=== PATIENT | female | born 1950 ===

== ENCOUNTER 2021-02-24 07:43 | Day surgery (SDC) | payer OTHER ==
[~2021-02-24 07:43] MED LIST: CLONAZEPAM2 M1 PO; PROTONIX40 MG PO; SIMVASTATIN20 MG PO; TOPROL XL25 M1 PO; WELLBUTRIN XL300 MG PO
[2021-02-24] MEDS ORDERED: ULTRAM50 MG PO (12:36)
[2021-02-24] MEDS ORDERED: CEPHALEXIN250 M1 PO (12:38)
== END 2021-02-24 14:00 | disposition home or self-care (01) ==
LOC: CIR.AMB 07:43
PROVIDERS: ATTEND Surgery
DX: R15.9 Full incontinence of feces (principal); Z20.822 Contact with and (suspected) exposure to COVID-19
CPT/HCPCS: 64581; C1778

== ENCOUNTER 2021-03-10 05:47 | Day surgery (SDC) | payer OTHER ==
[~2021-03-10 05:47] MED LIST changes: +CEPHALEXIN250 M1 PO; +ULTRAM50 MG PO
== END 2021-03-10 19:28 | disposition home or self-care (01) ==
LOC: CIR.AMB 05:47
PROVIDERS: ATTEND Surgery
DX: R15.9 Full incontinence of feces (principal); Z20.822 Contact with and (suspected) exposure to COVID-19
CPT/HCPCS: 64590; L8679